=== PATIENT | female | born 1950 | race Caucasian/White ===

== ENCOUNTER 2017-03-03 20:26 | Emergency (ER) | payer MEDICARE, OTHER ==
[~2017-03-03] VITALS: Ht 157.5 cm; Wt 71.7 kg
[~2017-03-03 20:26] MED LIST: BECL8.7A5 IH; IBUP200C5 PO; LEVO125T8 PO
--- NOTE | 2017-03-03 21:09 | NUR ---
Patient walked in to ER c/o LEFT wrist pain. Patient states that she was "kicking a Papo box" when she stumbled backwards using her LEFT arm to catch herself. To room 4B.
--- NOTE | 2017-03-03 21:14 | NUR ---
ERMD at bedside for MSE.
[2017-03-03] MEDS ORDERED: MORPHINE SULFATE 4 MG/1 ML DISP.SYRIN IM ONE (21:15)
[2017-03-03] MEDS ORDERED: ONDANSETRON 4 MG/2 ML VIAL IM ONE (21:15)
[2017-03-03] MEDS ORDERED: ONDANSETRON 4 MG/2 ML VIAL ONE (21:34)
[2017-03-03] MEDS ORDERED: MORPHINE SULFATE 4 MG/1 ML DISP.SYRIN ONE (21:34)
--- NOTE | 2017-03-03 22:30 | NUR ---
Patient discharged to home in stable conditon. Written and verbal after care instructions given. Patient verbalizes understanding of instructions.
== END 2017-03-03 22:31 | disposition home or self-care (01) ==
LOC: ER 20:27
DX: S52.502A Unspecified fracture of the lower end of left radius, initial encounter for closed fracture (principal); K58.9 Irritable bowel syndrome, unspecified; J45.909 Unspecified asthma, uncomplicated; G43.909 Migraine, unspecified, not intractable, without status migrainosus; Z88.0 Allergy status to penicillin; Z88.2 Allergy status to sulfonamides; W01.0XXA Fall on same level from slipping, tripping and stumbling without subsequent striking against object, initial encounter; Y92.89 Other specified places as the place of occurrence of the external cause; Y93.89 Activity, other specified; Y99.8 Other external cause status
CPT/HCPCS: 73090; 73110; A4663; J2270; J2405

== ENCOUNTER 2017-10-04 15:40 | Emergency (ER) | payer MEDICARE, OTHER ==
[~2017-10-04] VITALS: Ht 154.9 cm; Wt 72.6 kg
[2017-10-04] MEDS ORDERED: FLUOXETINE CAP 20MG (15:54)
[2017-10-04] MEDS ORDERED: RANITIDINE TAB 300MG (15:54)
[2017-10-04] MEDS ORDERED: AMPH20TA3 PO (15:57)
[2017-10-04 16:17] LABS: BASOPHILS % (AUTO) 0.2 % (0.0-2.0); EOSINOPHILS # (AUTO) 0.1 K/uL (0.0-0.7); EOSINOPHILS % (AUTO) 0.6 % (0.0-7.0); HEMATOCRIT 45.7 % (31.2-41.9); HEMOGLOBIN 15.3 g/dL (10.9-14.3); LYMPHOCYTES # (AUTO) 0.8 K/uL (20.0-40.0); LYMPHOCYTES % (AUTO) 4.3 % (20.5-51.5); MEAN CORPUSCULAR HEMOGLOBIN 29.6 uug (24.7-32.8); MEAN CORPUSCULAR HGB CONC 33 g/dL (32.3-35.6); MEAN CORPUSCULAR VOLUME 88.5 fL (75.5-95.3); MONOCYTES # (AUTO) 0.5 K/uL (2.0-10.0); MONOCYTES % (AUTO) 2.9 % (0.0-11.0); NEUTROPHILS # (AUTO) 16.7 K/uL (1.8-8.9); PLATELET COUNT (AUTO) 340 K/uL (179-408); RED BLOOD CELL COUNT(AUTO) 5.16 MIL/uL (3.63-4.92); WHITE BLOOD COUNT (AUTO) 18.1 K/uL (3.8-11.8)
[2017-10-04 16:25] LABS: CREATININE 0.9 mg/dL (0.6-1.3); POTASSIUM 3.4 mmol/L (3.5-5.1)
[2017-10-04 16:30] LABS: BILIRUBIN,TOTAL 1.5 mg/dL (0.2-1.0); TOTAL PROTEIN, SERUM 7.8 g/dL (6.4-8.2)
--- NOTE | 2017-10-04 18:02 | NUR ---
Patient discharged to home in stable conditon. Written and verbal after care instructions given. Patient verbalizes understanding of instructions. Ambulated from ER with stable gait. All belongings with patient.
[2017-10-04 18:03] VITALS: BP 121/71
== END 2017-10-04 18:03 | disposition home or self-care (01) ==
LOC: ER 15:40
DX: R07.89 Other chest pain (principal); J45.909 Unspecified asthma, uncomplicated; Z90.710 Acquired absence of both cervix and uterus; Z88.0 Allergy status to penicillin; Z88.2 Allergy status to sulfonamides; Z88.6 Allergy status to analgesic agent; Z88.8 Allergy status to other drugs, medicaments and biological substances; Z79.1 Long term (current) use of non-steroidal anti-inflammatories (NSAID); Z79.899 Other long term (current) drug therapy
CPT/HCPCS: 36415; 70030-TC; 85025; 85730; 93005; A4663

== ENCOUNTER 2019-09-19 18:14 | Emergency (ER) | payer MEDICARE, OTHER ==
[~2019-09-19] VITALS: Ht 157.5 cm; Wt 77.1 kg
[~2019-09-19 18:14] MED LIST changes: +AMPH20TA3 PO; +FLUOXETINE CAP 20MG; +RANITIDINE TAB 300MG
[2019-09-19] MEDS ORDERED: HYDROMORPHONE 2 MG/1 ML DISP.SYRIN ONE ×2 (18:40→22:10)
[2019-09-19] MEDS ORDERED: ONDANSETRON 4 MG/2 ML VIAL ONE ×4 (18:41→22:10)
[2019-09-19] MEDS ORDERED: ONDANSETRON 4 MG/2 ML VIAL IV ONE ×4 (18:45→22:15)
[2019-09-19] MEDS ORDERED: HYDROMORPHONE 1 MG/1 ML DISP.SYRIN IV ONE (18:45)
[2019-09-19] MEDS ORDERED: IV NORMAL SALINE 1000 ML BAG IV ONE (18:45)
[2019-09-19 18:58] LABS: CREATININE 0.9 mg/dL (0.6-1.3); POTASSIUM 4.2 mmol/L (3.5-5.1)
[2019-09-19 19:00] LABS: BASOPHILS # (AUTO) 0.1 K/uL (0.0-8.0); BASOPHILS % (AUTO) 0.4 % (0.0-2.0); EOSINOPHILS # (AUTO) 0.2 K/uL (0.0-0.7); EOSINOPHILS % (AUTO) 0.8 % (0.0-7.0); HEMATOCRIT 45.5 % (31.2-41.9); HEMOGLOBIN 15.4 g/dL (10.9-14.3); LYMPHOCYTES # (AUTO) 2.6 K/uL (20.0-40.0); LYMPHOCYTES % (AUTO) 12.9 % (20.5-51.5); MEAN CORPUSCULAR HEMOGLOBIN 29.4 uug (24.7-32.8); MEAN CORPUSCULAR HGB CONC 34 g/dL (32.3-35.6); MEAN CORPUSCULAR VOLUME 87.1 fL (75.5-95.3); MONOCYTES # (AUTO) 1.2 K/uL (2.0-10.0); MONOCYTES % (AUTO) 5.9 % (0.0-11.0); PLATELET COUNT (AUTO) 370 K/uL (179-408); RED BLOOD CELL COUNT(AUTO) 5.23 MIL/uL (3.63-4.92)
[2019-09-19 19:10] LABS: BILIRUBIN,DIRECT 0.8 mg/dL (0.0-0.2); BILIRUBIN,TOTAL 1.4 mg/dL (0.2-1.0); TOTAL PROTEIN, SERUM 7.8 g/dL (6.4-8.2)
--- NOTE | 2019-09-19 19:23 | NUR ---
Xray at bedside.
--- NOTE | 2019-09-19 19:28 | NUR ---
Pt out of ER for CT.
--- NOTE | 2019-09-19 19:46 | NUR ---
Pt back to ER from CT.
--- NOTE | 2019-09-19 20:00 | NUR ---
Called [facility] to fady Suarez NP.
[2019-09-19] MEDS ORDERED: levoFLOXacin 750 MG/D5W 150 ML PIGGYBACK IV ONE (20:15)
[2019-09-19] MEDS ORDERED: levoFLOXacin 750MG/D5W 150 ML IV ONE (20:18)
--- NOTE | 2019-09-19 20:24 | NUR ---
Arash Suarez RN [facility] at bedside for MSE.
--- NOTE | 2019-09-19 20:29 | NUR ---
Pt accepted for admission [facility] by Arash Suarez NP, diagnosis: cholelithiasis.
--- NOTE | 2019-09-19 20:32 | NUR ---
Dr. Gallegos speaking with Dr. Hull.
[2019-09-19] MEDS ORDERED: ALEN70TA6 PO (20:38)
[2019-09-19] MEDS ORDERED: ALBU8HFA4 (20:38)
[2019-09-19] MEDS ORDERED: FLUT16SP NS (20:38)
[2019-09-19] MEDS ORDERED: estradiol patch TD (20:38)
--- NOTE | 2019-09-19 20:47 | NUR ---
Called [facility] . Spoke to Faye who requested Facesheet and Clinical faxed to
[2019-09-19] MEDS: HYDROMORPHONE 1 MG/1 ML DISP.SYRIN IV ONE ×2 (21:03→22:15)
--- NOTE | 2019-09-19 21:05 | NUR ---
Called [facility], Spoke with Legal Nurse Consultant, Abad, transfer center is closed until morning. notified.
--- NOTE | 2019-09-19 21:23 | NUR ---
Received callback from [facility] [place], no beds available.
--- NOTE | 2019-09-19 21:29 | NUR ---
Kathleen Rosado of [facility], requested to have face sheet and clinicals sent to .
--- NOTE | 2019-09-19 21:32 | NUR ---
Received call back from Trever of [facility],, requested to have face sheet and clinicals faxed to .
--- NOTE | 2019-09-19 21:45 | NUR ---
Ultrasound at bedside.
--- NOTE | 2019-09-19 22:01 | NUR ---
Dr. Gallegos speaking with Dr. Connell.
--- NOTE | 2019-09-19 22:03 | NUR ---
Patient accepted by Dr. Connell of [facility]. Awaiting transfer information.
--- NOTE | 2019-09-19 22:21 | NUR ---
Dr. Hull at bedside.
[2019-09-19] MEDS ORDERED: METOCLOPRAMIDE HCL 10 MG/2 ML VIAL IV ONE (22:30)
[2019-09-19] MEDS ORDERED: METOCLOPRAMIDE HCL 10 MG/2 ML VIAL ONE (22:30)
--- NOTE | 2019-09-19 22:44 | NUR ---
Received call back from Med[place] from [facility], received transfer information, Patient going to [facility], Accepting MD is Dr. Connell, Room#2273, Number to report to .
[2019-09-19] MEDS ORDERED: MUPIROCIN 2% OINT 22 GM TUBE TP ONE (22:45)
--- NOTE | 2019-09-19 22:49 | NUR ---
Called [facility] for transport to [facility], eta 2-2.5 hours ~0100.
--- NOTE | 2019-09-19 23:00 | NUR ---
Called [facility] for pt transport to [facility], ETA [id number], Trip#[id number].
--- NOTE | 2019-09-19 23:19 | NUR ---
Report given to Eva Juarez.
--- NOTE | 2019-09-20 00:05 | NUR ---
[facility] arrived to ER to transport patient to [facility]. Report and documentation given to EMT.
--- NOTE | 2019-09-23 09:18 | NUR ---
Noted this morning three fax requests from [facility] for clinicals to support the pt's admissions. Called manager of case Shamir Gottlieb @ P:[phone] and informed him that the pt was never admitted to [facility] medical floor and the pt was picked-up from [facility] ER and transferred to [place] on 09/19 a little after midnight [id number].
== END 2019-09-20 00:24 | disposition short-term general hospital (02) ==
LOC: ER 18:15
DX: K80.41 Calculus of bile duct with cholecystitis, unspecified, with obstruction (principal); Z90.710 Acquired absence of both cervix and uterus; J45.909 Unspecified asthma, uncomplicated; K58.9 Irritable bowel syndrome, unspecified; Z85.42 Personal history of malignant neoplasm of other parts of uterus; D72.829 Elevated white blood cell count, unspecified; R74.0 Nonspecific elevation of levels of transaminase and lactic acid dehydrogenase [LDH]; E80.6 Other disorders of bilirubin metabolism; F90.9 Attention-deficit hyperactivity disorder, unspecified type; Z11.59 Encounter for screening for other viral diseases
CPT/HCPCS: 71045; 74176; 76705; 80048; 80076; 83690; 84484; 85025; 85730; 93005; 96361; 96365; 96375; 96376; 99285; J1170 ×2; J1956; J2405 ×4; J2765; U0003; 36415; 70030-TC; A4663; J7030

== ENCOUNTER 2023-10-23 02:18 | Inpatient (IN) | payer MEDICARE ==
[~2023-10-23] VITALS: Ht 154.9 cm; Wt 54.4 kg
[~2023-10-23 02:18] MED LIST changes: +ALBU8HFA4; +ALEN70TA80 PO; +FLUT16SP NS; -IBUP200C5 PO; -RANITIDINE TAB 300MG; +estradiol patch TD
[2023-10-23] MEDS: IV NORMAL SALINE 1000 ML BAG IV ONE (03:08)
[2023-10-23] MEDS ORDERED: CEFTRIAXONE /D5W 50ML IVPB **ER PYXIS IV ONE (03:09)
[2023-10-23] MEDS ORDERED: METRONIDAZOLE 500 MG/NS 100ML 100 ML IV ONE (03:10)
[2023-10-23] MEDS: CEFTRIAXONE 1 G in IV DEXTROSE 5% 50 ML IV ONE (03:14)
[2023-10-23 03:18] LABS: BASOPHILS # (AUTO) 0.1 K/UL (0.0-0.2); BASOPHILS % (AUTO) 0.3 % (0.0-2.0); EOSINOPHILS % (AUTO) 0.1 % (0.0-7.0); HEMATOCRIT 49.9 % (31.2-41.9); HEMOGLOBIN 16.6 g/dL (10.9-14.3); LYMPHOCYTES # (AUTO) 1.2 K/uL (0.8-4.8); MEAN CORPUSCULAR HEMOGLOBIN 30.8 uug (24.7-32.8); MEAN CORPUSCULAR HGB CONC 33 g/dL (32.3-35.6); MEAN CORPUSCULAR VOLUME 92.4 fL (75.5-95.3); MONOCYTES # (AUTO) 0.5 K/uL (0.1-1.30); MONOCYTES % (AUTO) 1.6 % (0.0-11.0); NEUTROPHILS # (AUTO) 28.1 K/uL (1.8-8.9); PLATELET COUNT (AUTO) 408 K/uL (179-408); WHITE BLOOD COUNT (AUTO) 29.8 K/uL (3.8-11.8)
[2023-10-23 03:33] LABS: CALCIUM 10.1 mg/dL (8.5-10.1); CARBON DIOXIDE 22 mmol/L (21-32); CHLORIDE 102 mmol/L (98-107); CREATININE 1.1 mg/dL (0.6-1.3); GLUCOSE 238 mg/dL (74-106); POTASSIUM 3.6 mmol/L (3.5-5.1); SODIUM SERUM 140 mmol/L (136-145); UREA NITROGEN, BLOOD 28 mg/dL (7-18)
[2023-10-23 03:42] LABS: LACTIC ACID 3.6 mmol/L (0.4-2.0)
[2023-10-23 03:44] LABS: DIFFERENTIAL COMMENT 1
[2023-10-23] MEDS: METRONIDAZOLE 500 MG/NS 100ML 100 ML IV ONE (03:44)
[2023-10-23 03:48] LABS: ALANINE AMINOTRANSFERASE 16 U/L (14-59); ALBUMIN 3.9 g/dL (3.4-5.0); ALKALINE PHOSPHATASE 103 U/L (50-136); ASPARTATE AMINOTRANSFERASE 12 U/L (15-37); BILIRUBIN,DIRECT 0.3 mg/dL (0.0-0.2); NT-PRO BNP 38 pg/mL (0-125); TOTAL PROTEIN, SERUM 7.8 g/dL (6.4-8.2)
[2023-10-23] MEDS ORDERED: ONDANSETRON 4 MG/2 ML VIAL IV PRN (05:30)
[2023-10-23] MEDS ORDERED: hydrALAZINE HCL 20 MG/1 ML VIAL IV PRN (05:30)
[2023-10-23] MEDS ORDERED: MORPHINE SULFATE 2 MG/1 ML DISP.SYRIN IVP PRN (05:30)
[2023-10-23] MEDS ORDERED: ACETAMINOPHEN 325 MG TABLET PO PRN (05:30)
[2023-10-23] MEDS ORDERED: CEFEPIME HCL 1 G in IV DEXTROSE 5% 50 ML IV SCH ×2 (06:00→14:00)
[2023-10-23 07:25] LABS: *OCCULT BLOOD STOOL NEGATIVE (NEGATIVE)
[2023-10-23 07:46] VITALS: BP 108/71; TEMP 98.7; O2SAT 97
[2023-10-23] MEDS: HEPARIN SODIUM,PORCINE 5,000 UNITS/ML VIAL SQ SCH (10:10)
[2023-10-23] MEDS: IV NS 1000 ML 1,000 ML IV SCH (10:10)
[2023-10-23] MEDS ORDERED: SWABABLE VALVE TRANSFER SET EA MC ONE (11:16)
[2023-10-23] MEDS ORDERED: IV NORMAL SALINE 250 ML IV ONE (11:16)
[2023-10-23] MEDS ORDERED: IOHEXOL 300MG/ML 100 ML INFUS..BTL ONE (11:16)
[2023-10-23 11:45] VITALS: BP 99/58; TEMP 98.7; O2SAT 98
[2023-10-23] MEDS ORDERED: ALBU18HF2 INH (11:59)
[2023-10-23] MEDS ORDERED: ESTR1PAT87 TD (12:01)
[2023-10-23] MEDS ORDERED: SEMA2.4P SQ (12:08)
[2023-10-23] MEDS: METRONIDAZOLE 500 MG/NS 100ML 500 MG in PREMIXED 1 EACH IV SCH (12:09)
[2023-10-23] MEDS ORDERED: LEVO125T8 PO ×2 (12:09→12:11)
[2023-10-23] MEDS ORDERED: DEXT20TA6 PO (12:14)
[2023-10-23] MEDS ORDERED: ALEN70TA80 PO (12:15)
[2023-10-23] MEDS ORDERED: CALC-1210 PO (12:16)
[2023-10-23] MEDS ORDERED: FLUO20TA28 PO (12:16)
[2023-10-23] MEDS ORDERED: CHOL500062 PO (12:17)
[2023-10-23 16:00] VITALS: BP 98/56; TEMP 98.7; O2SAT 95
[2023-10-23] MEDS: CEFEPIME HCL 2 GM in IV DEXTROSE 5% 100 ML IV SCH (21:05)
[2023-10-23 21:53] VITALS: BP 101/51; TEMP 97.7; O2SAT 94
[2023-10-24 06:29] VITALS: BP 122/51; TEMP 98.7; O2SAT 95
[2023-10-24 06:40] LABS: BASOPHILS # (AUTO) 0.1 K/UL (0.0-0.2); BASOPHILS % (AUTO) 0.6 % (0.0-2.0); EOSINOPHILS # (AUTO) 0.4 K/uL (0.0-0.7); EOSINOPHILS % (AUTO) 4.2 % (0.0-7.0); HEMATOCRIT 37.5 % (31.2-41.9); HEMOGLOBIN 12.7 g/dL (10.9-14.3); LYMPHOCYTES # (AUTO) 1.7 K/uL (0.8-4.8); LYMPHOCYTES % (AUTO) 17.3 % (20.5-51.5); MEAN CORPUSCULAR HEMOGLOBIN 31.2 uug (24.7-32.8); MEAN CORPUSCULAR HGB CONC 34 g/dL (32.3-35.6); MEAN CORPUSCULAR VOLUME 91.9 fL (75.5-95.3); MONOCYTES # (AUTO) 0.7 K/uL (0.1-1.30); MONOCYTES % (AUTO) 6.9 % (0.0-11.0); NEUTROPHILS # (AUTO) 6.9 K/uL (1.8-8.9); PLATELET COUNT (AUTO) 294 K/uL (179-408); RED BLOOD CELL COUNT(AUTO) 4.08 MIL/uL (3.63-4.92); RED CELL DISTRIBUTION WIDTH 12.8 % (12.3-17.7); WHITE BLOOD COUNT (AUTO) 9.7 K/uL (3.8-11.8)
[2023-10-24 06:52] LABS: DIFFERENTIAL COMMENT 1
[2023-10-24 06:57] LABS: ALBUMIN 2.5 g/dL (3.4-5.0); BILIRUBIN,TOTAL 0.4 mg/dL (0.2-1.0); CALCIUM 7.8 mg/dL (8.5-10.1); CREATININE 0.7 mg/dL (0.6-1.3); PHOSPHOROUS 3.1 mg/dL (2.5-4.9); POTASSIUM 3.5 mmol/L (3.5-5.1); TOTAL PROTEIN, SERUM 5.4 g/dL (6.4-8.2)
[2023-10-24 13:15] VITALS: BP 116/50; TEMP 98.3; O2SAT 94
[2023-10-24 16:13] VITALS: BP 95/50; TEMP 98.5; O2SAT 95
[2023-10-24 20:00] VITALS: BP 103/54; TEMP 99.1; O2SAT 96
[2023-10-25 06:00] VITALS: BP 140/74; TEMP 98.4; O2SAT 95
[2023-10-25] MEDS ORDERED: METR500T PO (10:42)
[2023-10-25] MEDS ORDERED: LEVO500T90 PO (10:42)
[2023-10-25 11:33] VITALS: BP 113/58; TEMP 98.2; O2SAT 96
[2023-10-27] MEDS ORDERED: ONDA4TAB11 PO (21:04)
== END 2023-10-25 13:00 | disposition home or self-care (01) | DRG 872 ==
LOC: ER 02:24 → MEDSURG3 05:30
PROVIDERS: ADMIT Internal Medicine; ATTEND Nurse Practitioner Acute Care
DX: A41.9 Sepsis, unspecified organism (principal); K57.92 Diverticulitis of intestine, part unspecified, without perforation or abscess without bleeding; E87.20 Acidosis, unspecified; Z90.49 Acquired absence of other specified parts of digestive tract; K58.9 Irritable bowel syndrome, unspecified; R65.20 Severe sepsis without septic shock; E86.0 Dehydration; E03.9 Hypothyroidism, unspecified; G89.29 Other chronic pain; F32.A Depression, unspecified; E21.3 Hyperparathyroidism, unspecified; J45.909 Unspecified asthma, uncomplicated; R79.89 Other specified abnormal findings of blood chemistry; Z79.890 Hormone replacement therapy; Z79.899 Other long term (current) drug therapy; Z90.710 Acquired absence of both cervix and uterus; Z88.0 Allergy status to penicillin; Z88.2 Allergy status to sulfonamides; Z88.8 Allergy status to other drugs, medicaments and biological substances; F90.9 Attention-deficit hyperactivity disorder, unspecified type; Z85.42 Personal history of malignant neoplasm of other parts of uterus; Z87.891 Personal history of nicotine dependence
CPT/HCPCS: 36415; 71045; 83605; 84100; 84443; 84484; 85025; 85730; 87040; 89055; 93005; A4606; A4663; G0378; J0692; J0696; J1644; J3490; J7040; Q9967